=== PATIENT | male | born 1970 | race American Indian/Alaskan Native ===

== ENCOUNTER 2020-02-16 12:39 | Inpatient (IN) | payer OTHER ==
--- NOTE | 2020-02-16 12:42 | EDM.PDOC ---
ED HPI GENERAL MEDICAL PROBLEM - General Chief Complaint: Diabetic Complaint Stated Complaint: UNKNOWN Time Seen by Provider: 02/16/20 12:40 Source of Information: Reports: Patient, EMS, Old Records, Provider (Madeleine CUSTOMER COUNTER REPRESENTATIVE via phone from [facility]), RN, RN Notes Reviewed History Limitations: Reports: No Limitations - History of Present Illness INITIAL COMMENTS - FREE TEXT/NARRATIVE: Pt arrives from [facility] by ambulance sent by Worko CUSTOMER COUNTER REPRESENTATIVE due to serum glucose >1000, and Na+. Pt reports Hx of DM Type 2 on Metformin for several years. Was on Levemir but it was discontinued about a year ago due to "good blood sugars". Pt's recent Hgb A1c was 13.4 per the CUSTOMER COUNTER REPRESENTATIVE at the clinic. Pt does not monitor his blood glucose at home. Pt admits to very dry mouth, polydipsia, polyuria, and mild nausea. Denies fever, chills, cough, chest pain, shortness of breath, vomiting, diarrhea, recent travel, or any exposures to confirmed or suspected Covid-19 cases. 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 - Related Data Allergies Allergy/AdvReac Type Severity Reaction Status Date / Time No Known Allergies Allergy Verified 10/07/14 13:15 Home Meds: Home Meds Aspirin [Ecotrin] 81 mg PO DAILY 10/07/14 [History] Lisinopril 10 mg PO DAILY 10/07/14 [History] Metoprolol Succinate 50 mg PO BID 10/07/14 [History] metFORMIN [Glucophage] 500 mg PO DAILY 10/07/14 [History] Past Medical History Cardiovascular History: Reports: Hypertension Endocrine/Metabolic History: Reports: Diabetes, Type II, Obesity/BMI 30+ - Past Surgical History Other HEENT Surgeries/Procedures: ear surgery GI Surgical History: Reports: Appendectomy, Cholecystectomy Social & Family History - Family History Cardiac: Reports: Angina, CAD, Heart Failure, Hypertension, [place] Respiratory: Reports: Asthma, COPD GI: Reports: Cirrhosis : Reports: Diabetic Nephropathy, Dialysis, Renal Disease/Insufficiency Musculoskeletal: Reports: Arthritis Neurological: Reports: CVA Psychiatric: Reports: Anxiety, Depression Endocrine/Metabolic: Reports: Diabetes, type II, Obesity/MBI 30+ - Alcohol Use Alcohol Use History: No - Recreational Drug Use Recreational Drug Use: No - Living Situation & Occupation Living situation: Reports: Single, with Family ED ROS GENERAL - Review of Systems Review Of Systems: Comprehensive ROS is negative, except as noted in HPI. ED EXAM GENERAL NO PERIP PULSE - Physical Exam Exam: See Below Exam Limited By: No Limitations General Appearance: Alert, WD/WN, No Apparent Distress, Obese Eye Exam: Bilateral Eye: EOMI, Normal Inspection, PERRL Ears: Normal External Exam, Hearing Grossly Normal Nose: Normal Inspection, Normal Mucosa, No Blood Throat/Mouth: Normal Lips, Normal Oropharynx, Normal Voice, No Airway Compromise , Other (Very dry oral mucosa) Head: Atraumatic, Normocephalic Neck: Normal Inspection, Supple, Non-Tender, Full Range of Motion Respiratory/Chest: No Respiratory Distress, Lungs Clear, Normal Breath Sounds, No Accessory Muscle Use, Chest Non-Tender Cardiovascular: Normal Peripheral Pulses, Regular Rate, Rhythm, No Edema, No Gallop, No JVD, No Murmur, No Rub GI/Abdominal: Normal Bowel Sounds, Soft, Non-Tender, No Organomegaly, No Distention, No Abnormal Bruit, No Mass (Male) Exam: Deferred Rectal (Males) Exam: Deferred Back Exam: Normal Inspection Extremities: Normal Inspection, Normal Range of Motion, Non-Tender, Normal Capillary Refill, No Pedal Edema Neurological: Alert, Oriented, CN II-XII Intact, Normal Cognition, Normal Gait, No Motor/Sensory Deficits Psychiatric: Normal Affect, Normal Mood Skin Exam: Warm, Dry, Intact, Normal Color, No Rash EKG INTERPRETATION EKG Date: 02/16/20 Time: 13:02 Rhythm: Other (SR) Rate (Beats/Min): 87 [place]: Normal P-Wave: Present QRS: Wide (borderline nonspecific IVCD) ST-T: Normal QT: Normal Comparison: NA - No Prior EKG Course - Vital Signs Last Recorded V/S: Last Vital Signs Temp 98.1 F 02/16/20 13:05 Pulse 86 02/16/20 13:05 Resp 18 02/16/20 13:05 BP 136/78 02/16/20 13:05 Pulse Ox 96 02/16/20 13:05 - Orders/Labs/Meds Orders: Active Orders 24 hr Category Date Time Status EKG 12 Lead [EKG Documentation Completion] [RC] STAT Care 02/16/20 12:42 Active Peripheral IV Care [RC] . DIRECTED Care 02/16/20 12:44 Active UA RFX MICHELE AND CULT IF INDIC [URIN] Stat Lab 02/16/20 14:00 Received Insulin Regular, Human [HumuLIN R] 100 unit Med 02/16/20 12:45 Active Sodium Chloride 0.9% [Normal Saline] 99 ml IV TITRATE Sodium Chloride 0.9% [Normal Saline] 1,000 ml Med 02/16/20 14:23 Ordered IV .BOLUS Sodium Chloride 0.9% [Saline Flush] Med 02/16/20 12:43 Active 10 ml FLUSH ASDIRECTED PRN Peripheral IV Insertion Adult [OM.PC] Stat Oth 02/16/20 12:42 Ordered Medication Orders Insulin Human Regular 100 unit (/ Sodium Chloride) 100 mls @ 10.13 mls/hr IV TITRATE JENNIFER; Protocol Last Admin: 02/16/20 14:08 Dose: 0.1 units/kg/hr, 10.13 mls/hr Sodium Chloride (Saline Flush) 10 ml FLUSH ASDIRECTED PRN PRN Reason: Keep Vein Open Last Admin: 02/16/20 13:23 Dose: 10 ml Labs: Laboratory Tests 02/16/20 02/16/20 02/16/20 Range/Units 12:46 12:50 12:56 WBC 9.6 (5.0-10.0) 10^3/uL RBC 4.86 (4.6-6.2) 10^6/uL Hgb 14.7 (14.0-18.0) g/dL Hct 41.6 (40.0-54.0) % MCV 85.6 D (80-100) fL MCH 30.2 (27.0-34.0) pg MCHC 35.3 H (33.0-35.0) g/dL Plt Count 322 (150-450) 10^3/uL Neut % (Auto) 74.5 (42.2-75.2) % Lymph % (Auto) 12.4 L (20.5-50.1) % [place] % (Auto) 10.0 H (2-8) % Eos % (Auto) 2.6 (1.0-3.0) % Baso % (Auto) 0.5 (0.0-1.0) % ABG pH 7.39 (7.35-7.45) ABG pCO2 39 (35-45) mmHg ABG pO2 88 (70-100) mmHg ABG HCO3 23.2 (22-26) mmol/L ABG O2 Saturation 93 L (95-100) % ABG Base Excess -1 ((-2)-(+3)) mmol/L Jasiel Test Performed O2 Delivery Device Room air Sodium (136-145) mmol/L Potassium (3.5-5.1) mmol/L Chloride (98-107) mmol/L Carbon Dioxide (21-32) mmol/L Anion Gap (7-13) mEq/L BUN (7-18) mg/dL Creatinine (0.70-1.30) mg/dL Est Cr Clr Drug Dosing mL/min Estimated GFR (MDRD) BUN/Creatinine Ratio (No establ ref range) Glucose (74-99) mg/dL POC Glucose > 500 H* (70-105) mg/dl Lactic Acid (0.4-2.0) mmol/L Calcium (8.5-10.1) mg/dL Magnesium (1.8-2.4) mg/dL Total Bilirubin (0.2-1.0) mg/dL AST (15-37) U/L ALT (16-63) U/L Alkaline Phosphatase (46-116) U/L Troponin I (0.000-0.056) ng/mL Total Protein (6.4-8.2) g/dL Albumin (3.4-5.0) g/dL Globulin Albumin/Globulin Ratio TSH, Ultra Sensitive (0.36-3.74) uIU/mL Urine Opiates Screen (NEGATIVE) Ur Oxycodone Screen (NEGATIVE) Urine Methadone Screen (NEGATIVE) Ur Barbiturates Screen (NEGATIVE) U Tricyclic Antidepress (NEGATIVE) Ur Phencyclidine Scrn (NEGATIVE) Ur Amphetamine Screen (NEGATIVE) U Methamphetamines Scrn (NEGATIVE) Urine MDMA Screen (NEGATIVE) U Benzodiazepines Scrn (NEGATIVE) Urine Cocaine Screen (NEGATIVE) U Marijuana (THC) Screen (NEGATIVE) Ethyl Alcohol (0) mg/dL Ketones 02/16/20 02/16/20 02/16/20 Range/Units 12:56 12:56 14:00 WBC (5.0-10.0) 10^3/uL RBC (4.6-6.2) 10^6/uL Hgb (14.0-18.0) g/dL Hct (40.0-54.0) % MCV (80-100) fL MCH (27.0-34.0) pg MCHC (33.0-35.0) g/dL Plt Count (150-450) 10^3/uL Neut % (Auto) (42.2-75.2) % Lymph % (Auto) (20.5-50.1) % [place] % (Auto) (2-8) % Eos % (Auto) (1.0-3.0) % Baso % (Auto) (0.0-1.0) % ABG pH (7.35-7.45) ABG pCO2 (35-45) mmHg ABG pO2 (70-100) mmHg ABG HCO3 (22-26) mmol/L ABG O2 Saturation (95-100) % ABG Base Excess ((-2)-(+3)) mmol/L Jasiel Test O2 Delivery Device Sodium 121 L (136-145) mmol/L Potassium 4.5 (3.5-5.1) mmol/L Chloride 82 L (98-107) mmol/L Carbon Dioxide 27 (21-32) mmol/L Anion Gap 16.5 H (7-13) mEq/L BUN 43 H (7-18) mg/dL Creatinine 1.98 H (0.70-1.30) mg/dL Est Cr Clr Drug Dosing 43.18 mL/min Estimated GFR (MDRD) 36 BUN/Creatinine Ratio 21.7 (No establ ref range) Glucose 752 H* (74-99) mg/dL POC Glucose (70-105) mg/dl Lactic Acid 1.8 (0.4-2.0) mmol/L Calcium 8.1 L (8.5-10.1) mg/dL Magnesium 2.4 (1.8-2.4) mg/dL Total Bilirubin 1.4 H (0.2-1.0) mg/dL AST 18 (15-37) U/L ALT 34 (16-63) U/L Alkaline Phosphatase 152 H (46-116) U/L Troponin I < 0.017 (0.000-0.056) ng/mL Total Protein 7.7 (6.4-8.2) g/dL Albumin 3.6 (3.4-5.0) g/dL Globulin 4.1 Albumin/Globulin Ratio 0.9 TSH, Ultra Sensitive 0.30 L (0.36-3.74) uIU/mL Urine Opiates Screen Negative (NEGATIVE) Ur Oxycodone Screen Negative (NEGATIVE) Urine Methadone Screen Negative (NEGATIVE) Ur Barbiturates Screen Negative (NEGATIVE) U Tricyclic Antidepress Negative (NEGATIVE) Ur Phencyclidine Scrn Negative (NEGATIVE) Ur Amphetamine Screen Negative (NEGATIVE) U Methamphetamines Scrn Negative (NEGATIVE) Urine MDMA Screen Negative (NEGATIVE) U Benzodiazepines Scrn Negative (NEGATIVE) Urine Cocaine Screen Negative (NEGATIVE) U Marijuana (THC) Screen Negative (NEGATIVE) Ethyl Alcohol < 3 (0) mg/dL Ketones Positive Meds: Medications Generic Name Dose Route Start Last Admin Trade Name Freq PRN Reason Stop Dose Admin Insulin Human Regular 100 unit 100 mls @ 10.13 mls/hr 02/16/20 12:45 14:08 / Sodium Chloride IV 0.1 units/kg/hr TITRATE JENNIFER 10.13 mls/hr Administration Protocol 0.1 UNITS/KG/HR Sodium Chloride 10 ml 02/16/20 12:43 02/16/20 13:23 Saline Flush FLUSH 10 ml ASDIRECTED PRN Administration Keep Vein Open Discontinued Medications Generic Name Dose Route Start Last Admin Trade Name Freq PRN Reason Stop Dose Admin Sodium Chloride 1,000 mls @ 999 mls/hr 02/16/20 12:44 02/16/20 14:07 Normal Saline IV 02/16/20 13:44 999 mls/hr .BOLUS ONE Administration Insulin Human Regular 10 unit 02/16/20 12:44 02/16/20 14:06 Humulin R IV 02/16/20 12:45 10.1 units ONETIME ONE Administration Ondansetron HCl 4 mg 02/16/20 13:42 02/16/20 14:08 Zofran IV 02/16/20 13:43 4 mg ONETIME ONE Administration Departure - Departure Time of Disposition: 14:24 (admitted to Dr. Mccrary) Disposition: Admitted As Inpatient 65 Condition: Fair Clinical Impression: Type 2 diabetes mellitus with hyperglycemia, without long-term current use of insulin, Diabetes mellitus with ketosis - Discharge Information *PRESCRIPTION DRUG MONITORING PROGRAM REVIEWED*: Not Applicable *COPY OF PRESCRIPTION DRUG MONITORING REPORT IN PATIENT RENATA: Not Applicable Forms: ED Department Discharge Sepsis Event Note - Focused Exam Vital Signs: Vital Signs Temp Pulse Resp BP Pulse Ox 02/16/20 13:05 98.1 F 86 18 136/78 96 Date Exam was Performed: 02/16/20 Time Exam was Performed: 14:24 - My Orders Last 24 Hours: My Active Orders 02/16/20 12:42 EKG 12 Lead [EKG Documentation Completion] [RC] STAT Peripheral IV Insertion Adult [OM.PC] Stat 02/16/20 12:43 Sodium Chloride 0.9% [Saline Flush] 10 ml FLUSH ASDIRECTED PRN 02/16/20 12:44 Peripheral IV Care [RC] . DIRECTED 02/16/20 12:45 Insulin Regular, Human [HumuLIN R] 100 unit Sodium Chloride 0.9% [Normal Saline] 99 ml IV TITRATE 02/16/20 14:00 UA RFX MICHELE AND CULT IF INDIC [URIN] Stat 02/16/20 14:23 Sodium Chloride 0.9% [Normal Saline] 1,000 ml IV .BOLUS - Assessment/Plan Last 24 Hours: My Active Orders 02/16/20 12:42 EKG 12 Lead [EKG Documentation Completion] [RC] STAT Peripheral IV Insertion Adult [OM.PC] Stat 02/16/20 12:43 Sodium Chloride 0.9% [Saline Flush] 10 ml FLUSH ASDIRECTED PRN 02/16/20 12:44 Peripheral IV Care [RC] . DIRECTED 02/16/20 12:45 Insulin Regular, Human [HumuLIN R] 100 unit Sodium Chloride 0.9% [Normal Saline] 99 ml IV TITRATE 02/16/20 14:00 UA RFX MICHELE AND CULT IF INDIC [URIN] Stat 02/16/20 14:23 Sodium Chloride 0.9% [Normal Saline] 1,000 ml IV .BOLUS
[2020-02-16] MEDS ORDERED: Sodium Chloride 0.9% 10 ML Syringe FLUSH PRN (12:43)
[2020-02-16] MEDS ORDERED: Insulin Regular, Human 100 Units/ML 3 ML Vial IV ONE (12:44)
[2020-02-16] MEDS ORDERED: Sodium Chloride 0.9% 1,000 ML IV ONE ×2 (12:44→14:23)
[2020-02-16 12:57] LABS: BASE EXCESS ARTERIAL -1 mmol/L ((-2)-(+3)); BICARBONATE,ARTERIAL 23.2 mmol/L (22-26); O2 DELIVERY DEVICE ROOM AIR; O2 SATURATION ARTERIAL 93 % (95-100); PCO2 ARTERIAL 39 mmHg (35-45); PO2 ARTERIAL 88 mmHg (70-100)
[2020-02-16 12:58] LABS: ALLEN TEST PERFORMED
[2020-02-16 13:31] LABS: ANION GAP 16.5 mEq/L (7-13); CHLORIDE,CL 82 mmol/L (98-107); SODIUM,NA 121 mmol/L (136-145)
[2020-02-16] MEDS ORDERED: Ondansetron 4 MG/2 ML SDV IV ONE (13:42)
[2020-02-16] MEDS ORDERED: Acetaminophen 325 MG Tab PO PRN (15:14)
[2020-02-16] MEDS ORDERED: Ondansetron 4 MG/2 ML SDV IVPUSH PRN (15:14)
--- NOTE | 2020-02-16 15:29 | PCM.HP ---
H&P History of Present Illness - General Date of Service: 02/16/20 Admit Problem/Dx: Admission Diagnosis/Problem Admission Diagnosis/Problem Hyperglycemia - History of Present Illness Initial Comments - Free Text/Narative: Is a 49-year-old man with past medical history of diabetes mellitus. Patient discontinued use of insulin about 5 years ago as advised because of good blood sugar. In the past one week he has been having polyuria, polydipsia, dry mouth. Was found to have blood sugar greater than 1200. Does have mild cough that is mostly unproductive. No fever chills or rigors. Denies feeling short of breath. In the emergency room the patient was found to be hyperglycemic. Anion gap was 16 though serum bicarbonate was within normal limits. Urinalysis was positive for ketones. Patient denies dysuria or frequency or micturition. No diarrhea. - Related Data Allergies/Adverse Reactions: Allergies Allergy/AdvReac Type Severity Reaction Status Date / Time No Known Allergies Allergy Verified 02/16/20 15:20 Home Medications: Home Meds Aspirin [Ecotrin] 81 mg PO DAILY 10/07/14 [History] Lisinopril 10 mg PO DAILY 10/07/14 [History] Metoprolol Succinate 50 mg PO BID 10/07/14 [History] metFORMIN [Glucophage] 500 mg PO DAILY 10/07/14 [History] Past Medical History Cardiovascular History: Reports: Hypertension Endocrine/Metabolic History: Reports: Diabetes, Type II, Obesity/BMI 30+ - Past Surgical History Other HEENT Surgeries/Procedures: ear surgery GI Surgical History: Reports: Appendectomy, Cholecystectomy Social & Family History - Family History Family Medical History: Noncontributory Cardiac: Reports: Angina, CAD, Heart Failure, Hypertension, SD Respiratory: Reports: Asthma, COPD GI: Reports: Cirrhosis : Reports: Diabetic Nephropathy, Dialysis, Renal Disease/Insufficiency Musculoskeletal: Reports: Arthritis Neurological: Reports: CVA Psychiatric: Reports: Anxiety, Depression Endocrine/Metabolic: Reports: Diabetes, type II, Obesity/MBI 30+ - Tobacco Use Smoking Status *Q: Never Smoker - Caffeine Use Caffeine Use: Reports: Coffee - Recreational Drug Use Recreational Drug Use: No - Living Situation & Occupation Living situation: Reports: Single, with Family H&P Review of Systems - Review of Systems: Review Of Systems: See Below General: Reports: Weakness, Fatigue Pulmonary: Reports: No Symptoms Cardiovascular: Reports: No Symptoms Gastrointestinal: Reports: Nausea, Vomiting Musculoskeletal: Reports: No Symptoms Skin: Reports: No Symptoms Psychiatric: Reports: No Symptoms Exam - Exam Exam: See Below - Vital Signs Vital Signs: Last Vital Signs Temp 36.7 C 02/16/20 13:05 Pulse 86 02/16/20 13:05 Resp 18 02/16/20 13:05 BP 136/78 02/16/20 13:05 Pulse Ox 96 02/16/20 13:05 Weight: 101.333 kg - Exam Neck: Supple, Trachea Midline, 2 Lungs: Clear to Auscultation, Normal Respiratory Effort Cardiovascular: Regular Rate, Regular Rhythm GI/Abdominal Exam: Normal Bowel Sounds, Soft, Non-Tender, No Organomegaly, No Distention, No Abnormal Bruit, No Mass, Pelvis Stable Extremities: Normal Inspection, Normal Range of Motion, Non-Tender, No Pedal Edema, Normal Capillary Refill - Patient Data Lab Results Last 24 hrs: Laboratory Results - last 24 hr 02/16/20 02/16/20 02/16/20 Range/Units 12:46 12:50 12:56 WBC 9.6 (5.0-10.0) 10^3/uL RBC 4.86 (4.6-6.2) 10^6/uL Hgb 14.7 (14.0-18.0) g/dL Hct 41.6 (40.0-54.0) % MCV 85.6 D (80-100) fL MCH 30.2 (27.0-34.0) pg MCHC 35.3 H (33.0-35.0) g/dL Plt Count 322 (150-450) 10^3/uL Neut % (Auto) 74.5 (42.2-75.2) % Lymph % (Auto) 12.4 L (20.5-50.1) % Edgar % (Auto) 10.0 H (2-8) % Eos % (Auto) 2.6 (1.0-3.0) % Baso % (Auto) 0.5 (0.0-1.0) % ABG pH 7.39 (7.35-7.45) ABG pCO2 39 (35-45) mmHg ABG pO2 88 (70-100) mmHg ABG HCO3 23.2 (22-26) mmol/L ABG O2 Saturation 93 L (95-100) % ABG Base Excess -1 ((-2)-(+3)) mmol/L Jasiel Test Performed O2 Delivery Device Room air Sodium (136-145) mmol/L Potassium (3.5-5.1) mmol/L Chloride (98-107) mmol/L Carbon Dioxide (21-32) mmol/L Anion Gap (7-13) mEq/L BUN (7-18) mg/dL Creatinine (0.70-1.30) mg/dL Est Cr Clr Drug Dosing mL/min Estimated GFR (MDRD) BUN/Creatinine Ratio (No establ ref range) Glucose (74-99) mg/dL POC Glucose > 500 H* (70-105) mg/dl Lactic Acid (0.4-2.0) mmol/L Calcium (8.5-10.1) mg/dL Magnesium (1.8-2.4) mg/dL Total Bilirubin (0.2-1.0) mg/dL AST (15-37) U/L ALT (16-63) U/L Alkaline Phosphatase (46-116) U/L Troponin I (0.000-0.056) ng/mL Total Protein (6.4-8.2) g/dL Albumin (3.4-5.0) g/dL Globulin Albumin/Globulin Ratio TSH, Ultra Sensitive (0.36-3.74) uIU/mL Urine Color (YELLOW) Urine Appearance (CLEAR) Urine pH (5.0-9.0) Ur Specific [place] (1.005-1.030) Urine Protein (NEGATIVE) Urine Glucose (UA) (NEGATIVE) Urine Ketones (NEGATIVE) Urine Occult Blood (NEGATIVE) Urine Nitrite (NEGATIVE) Urine Bilirubin (NEGATIVE) Urine Urobilinogen (0.2-1.0) mg/dL Ur Leukocyte Esterase (NEGATIVE) Urine RBC /HPF Urine WBC (0-5/HPF) /HPF Ur Epithelial Cells (NOT SEEN) /HPF Amorphous Sediment (NOT SEEN) /HPF Urine Bacteria (0-FEW/HPF) /HPF Urine Mucus (NOT SEEN) /LPF Urine Opiates Screen (NEGATIVE) Ur Oxycodone Screen (NEGATIVE) Urine Methadone Screen (NEGATIVE) Ur Barbiturates Screen (NEGATIVE) U Tricyclic Antidepress (NEGATIVE) Ur Phencyclidine Scrn (NEGATIVE) Ur Amphetamine Screen (NEGATIVE) U Methamphetamines Scrn (NEGATIVE) Urine MDMA Screen (NEGATIVE) U Benzodiazepines Scrn (NEGATIVE) Urine Cocaine Screen (NEGATIVE) U Marijuana (THC) Screen (NEGATIVE) Ethyl Alcohol (0) mg/dL Ketones 02/16/20 02/16/20 02/16/20 Range/Units 12:56 12:56 14:00 WBC (5.0-10.0) 10^3/uL RBC (4.6-6.2) 10^6/uL Hgb (14.0-18.0) g/dL Hct (40.0-54.0) % MCV (80-100) fL MCH (27.0-34.0) pg MCHC (33.0-35.0) g/dL Plt Count (150-450) 10^3/uL Neut % (Auto) (42.2-75.2) % Lymph % (Auto) (20.5-50.1) % Edgar % (Auto) (2-8) % Eos % (Auto) (1.0-3.0) % Baso % (Auto) (0.0-1.0) % ABG pH (7.35-7.45) ABG pCO2 (35-45) mmHg ABG pO2 (70-100) mmHg ABG HCO3 (22-26) mmol/L ABG O2 Saturation (95-100) % ABG Base Excess ((-2)-(+3)) mmol/L Jasiel Test O2 Delivery Device Sodium 121 L (136-145) mmol/L Potassium 4.5 (3.5-5.1) mmol/L Chloride 82 L (98-107) mmol/L Carbon Dioxide 27 (21-32) mmol/L Anion Gap 16.5 H (7-13) mEq/L BUN 43 H (7-18) mg/dL Creatinine 1.98 H (0.70-1.30) mg/dL Est Cr Clr Drug Dosing 43.18 mL/min Estimated GFR (MDRD) 36 BUN/Creatinine Ratio 21.7 (No establ ref range) Glucose 752 H* (74-99) mg/dL POC Glucose (70-105) mg/dl Lactic Acid 1.8 (0.4-2.0) mmol/L Calcium 8.1 L (8.5-10.1) mg/dL Magnesium 2.4 (1.8-2.4) mg/dL Total Bilirubin 1.4 H (0.2-1.0) mg/dL AST 18 (15-37) U/L ALT 34 (16-63) U/L Alkaline Phosphatase 152 H (46-116) U/L Troponin I < 0.017 (0.000-0.056) ng/mL Total Protein 7.7 (6.4-8.2) g/dL Albumin 3.6 (3.4-5.0) g/dL Globulin 4.1 Albumin/Globulin Ratio 0.9 TSH, Ultra Sensitive 0.30 L (0.36-3.74) uIU/mL Urine Color Yellow (YELLOW) Urine Appearance Slightly cloudy (CLEAR) Urine pH 6.0 (5.0-9.0) Ur Specific [place] 1.015 (1.005-1.030) Urine Protein Negative (NEGATIVE) Urine Glucose (UA) 500 H (NEGATIVE) Urine Ketones Trace H (NEGATIVE) Urine Occult Blood Trace-lysed H (NEGATIVE) Urine Nitrite Negative (NEGATIVE) Urine Bilirubin Negative (NEGATIVE) Urine Urobilinogen 0.2 (0.2-1.0) mg/dL Ur Leukocyte Esterase Negative (NEGATIVE) Urine RBC 5-10 H /HPF Urine WBC 0-5 (0-5/HPF) /HPF Ur Epithelial Cells Rare (NOT SEEN) /HPF Amorphous Sediment Rare (NOT SEEN) /HPF Urine Bacteria Rare (0-FEW/HPF) /HPF Urine Mucus Rare (NOT SEEN) /LPF Urine Opiates Screen (NEGATIVE) Ur Oxycodone Screen (NEGATIVE) Urine Methadone Screen (NEGATIVE) Ur Barbiturates Screen (NEGATIVE) U Tricyclic Antidepress (NEGATIVE) Ur Phencyclidine Scrn (NEGATIVE) Ur Amphetamine Screen (NEGATIVE) U Methamphetamines Scrn (NEGATIVE) Urine MDMA Screen (NEGATIVE) U Benzodiazepines Scrn (NEGATIVE) Urine Cocaine Screen (NEGATIVE) U Marijuana (THC) Screen (NEGATIVE) Ethyl Alcohol < 3 (0) mg/dL Ketones Positive 02/16/20 02/16/20 Range/Units 14:00 15:20 WBC (5.0-10.0) 10^3/uL RBC (4.6-6.2) 10^6/uL Hgb (14.0-18.0) g/dL Hct (40.0-54.0) % MCV (80-100) fL MCH (27.0-34.0) pg MCHC (33.0-35.0) g/dL Plt Count (150-450) 10^3/uL Neut % (Auto) (42.2-75.2) % Lymph % (Auto) (20.5-50.1) % Edgar % (Auto) (2-8) % Eos % (Auto) (1.0-3.0) % Baso % (Auto) (0.0-1.0) % ABG pH (7.35-7.45) ABG pCO2 (35-45) mmHg ABG pO2 (70-100) mmHg ABG HCO3 (22-26) mmol/L ABG O2 Saturation (95-100) % ABG Base Excess ((-2)-(+3)) mmol/L Jasiel Test O2 Delivery Device Sodium (136-145) mmol/L Potassium (3.5-5.1) mmol/L Chloride (98-107) mmol/L Carbon Dioxide (21-32) mmol/L Anion Gap (7-13) mEq/L BUN (7-18) mg/dL Creatinine (0.70-1.30) mg/dL Est Cr Clr Drug Dosing mL/min Estimated GFR (MDRD) BUN/Creatinine Ratio (No establ ref range) Glucose (74-99) mg/dL POC Glucose 440 H* (70-105) mg/dl Lactic Acid (0.4-2.0) mmol/L Calcium (8.5-10.1) mg/dL Magnesium (1.8-2.4) mg/dL Total Bilirubin (0.2-1.0) mg/dL AST (15-37) U/L ALT (16-63) U/L Alkaline Phosphatase (46-116) U/L Troponin I (0.000-0.056) ng/mL Total Protein (6.4-8.2) g/dL Albumin (3.4-5.0) g/dL Globulin Albumin/Globulin Ratio TSH, Ultra Sensitive (0.36-3.74) uIU/mL Urine Color (YELLOW) Urine Appearance (CLEAR) Urine pH (5.0-9.0) Ur Specific [place] (1.005-1.030) Urine Protein (NEGATIVE) Urine Glucose (UA) (NEGATIVE) Urine Ketones (NEGATIVE) Urine Occult Blood (NEGATIVE) Urine Nitrite (NEGATIVE) Urine Bilirubin (NEGATIVE) Urine Urobilinogen (0.2-1.0) mg/dL Ur Leukocyte Esterase (NEGATIVE) Urine RBC /HPF Urine WBC (0-5/HPF) /HPF Ur Epithelial Cells (NOT SEEN) /HPF Amorphous Sediment (NOT SEEN) /HPF Urine Bacteria (0-FEW/HPF) /HPF Urine Mucus (NOT SEEN) /LPF Urine Opiates Screen Negative (NEGATIVE) Ur Oxycodone Screen Negative (NEGATIVE) Urine Methadone Screen Negative (NEGATIVE) Ur Barbiturates Screen Negative (NEGATIVE) U Tricyclic Antidepress Negative (NEGATIVE) Ur Phencyclidine Scrn Negative (NEGATIVE) Ur Amphetamine Screen Negative (NEGATIVE) U Methamphetamines Scrn Negative (NEGATIVE) Urine MDMA Screen Negative (NEGATIVE) U Benzodiazepines Scrn Negative (NEGATIVE) Urine Cocaine Screen Negative (NEGATIVE) U Marijuana (THC) Screen Negative (NEGATIVE) Ethyl Alcohol (0) mg/dL Ketones Result Diagrams: 02/16/20 12:56 02/16/20 12:56 Problem List Initiated/Reviewed/Updated: Yes Orders Last 24hrs: Active Orders 24 hr Category Date Time Status Admission Diagnosis [ADT] Stat ADT 02/16/20 14:48 Ordered Admission Status [Patient Status] [ADT] Routine ADT 02/16/20 14:48 Active Patient Status [ADT] Routine ADT 02/16/20 15:14 Ordered EKG 12 Lead [EKG Documentation Completion] [RC] STAT Care 02/16/20 12:42 Active Intake and Output [RC] QSHIFT Care 02/16/20 15:15 Ordered Oxygen Therapy [RC] PRN Care 02/16/20 15:14 Ordered Peripheral IV Care [RC] . DIRECTED Care 02/16/20 12:44 Active Up ad Jyoti [RC] ASDIRECTED Care 02/16/20 15:14 Ordered VTE/DVT Education [RC] PER UNIT ROUTINE Care 02/16/20 15:14 Ordered Vital Signs [RC] Q4H Care 02/16/20 15:14 Ordered Consistent Carbohydrate Diet [DIET] Diet 02/16/20 Dinner Ordered BASIC METABOLIC PANEL,BMP [CHEM] Q8H Lab 02/17/20 05:11 Ordered BASIC METABOLIC PANEL,BMP [CHEM] Q8H Lab 02/17/20 13:11 Ordered BASIC METABOLIC PANEL,BMP [CHEM] Q8H Lab 02/17/20 21:11 Ordered CBC WITH AUTO DIFF [HEME] AM Lab 02/17/20 05:11 Ordered FREE T3 [REF] Routine Lab 02/16/20 15:24 Ordered MAGNESIUM [CHEM] AM Lab 02/17/20 05:11 Ordered PHOSPHORUS [CHEM] AM Lab 02/17/20 05:11 Ordered T4 FREE [CHEM] Routine Lab 02/16/20 15:24 Ordered Acetaminophen [Tylenol] Med 02/16/20 15:14 Ordered 650 mg PO Q4H PRN Heparin Sodium Med 02/16/20 22:00 Ordered 5,000 units SUBCUT Q8HR Insulin Regular, Human [HumuLIN R] 100 unit Med 02/16/20 12:45 Active Sodium Chloride 0.9% [Normal Saline] 99 ml IV TITRATE Ondansetron [Zofran] Med 02/16/20 15:14 Ordered 4 mg IVPUSH Q6H PRN Sodium Chloride 0.9% [Normal Saline] 1,000 ml Med 02/16/20 15:15 Ordered IV ASDIRECTED Sodium Chloride 0.9% [Saline Flush] Med 02/16/20 12:43 Active 10 ml FLUSH ASDIRECTED PRN Peripheral IV Insertion Adult [OM.PC] Stat Oth 02/16/20 12:42 Ordered Resuscitation Status Routine Resus Stat 02/16/20 15:14 Ordered Medication Orders Acetaminophen (Tylenol) 650 mg PO Q4H PRN PRN Reason: Pain (Mild 1-3)/fever Heparin Sodium (Porcine) (Heparin Sodium) 5,000 units SUBCUT Q8HR JENNIFER Insulin Human Regular 100 unit (/ Sodium Chloride) 100 mls @ 20.26 mls/hr IV TITRATE JENNIFER; Protocol Last Admin: 02/16/20 14:08 Dose: 0.1 units/kg/hr, 10.13 mls/hr Sodium Chloride (Normal Saline) 1,000 mls @ 200 mls/hr IV ASDIRECTED JENNIFER Ondansetron HCl (Zofran) 4 mg IVPUSH Q6H PRN PRN Reason: Nausea/Vomiting Sodium Chloride (Saline Flush) 10 ml FLUSH ASDIRECTED PRN PRN Reason: Keep Vein Open Last Admin: 02/16/20 13:23 Dose: 10 ml Assessment/Plan Comment:: #. Severe hyperglycemia blood sugar was greater than 1200 #. Uncontrolled diabetes mellitus type 2 Discontinued insulin use because of "good blood sugar" #. Hyponatremia Secondary to hyperglycemia #. Low TSH We'll investigate for hyperthyroidism #. Elevated bilirubin Plan: Admit patient to medical floor Start patient on continuous intravenous insulin Monitor blood sugar Obtain basic metabolic panel every 8 hours Send sample for serum free T3 and T4
[2020-02-16] MEDS: Sodium Chloride 0.9% 1,000 ML IV SCH ×2 (16:56→21:59)
[2020-02-16] MEDS: Insulin Lispro 100 Units/ML 3 ML Vial SUBCUT SCH ×2 (18:19→21:24)
[2020-02-16] MEDS: Insulin Glarg,Human.Rec.Analog 100 Unit/ML SUBCUT SCH (19:24)
[2020-02-16] MEDS ORDERED: Insulin Glarg,Human.Rec.Analog 100 Unit/ML SUBCUT ONE (21:11)
[2020-02-16] MEDS ORDERED: Insulin Lispro 100 Units/ML 3 ML Vial SUBCUT ONE (21:12)
[2020-02-16] MEDS: Heparin Sodium 5,000 Units/ML Vial SUBCUT SCH (21:37)
[2020-02-16] MEDS: Benzocaine/Cetylpyridinium/Menthol Lozenge MUCMEM PRN (23:50)
[2020-02-17] MEDS: Sodium Chloride 0.9% 1,000 ML IV SCH ×2 (03:04→08:21)
[2020-02-17] MEDS: Heparin Sodium 5,000 Units/ML Vial SUBCUT SCH ×2 (06:43→14:10)
[2020-02-17 07:17] LABS: CHLORIDE,CL 98 mmol/L (98-107); SODIUM,NA 133 mmol/L (136-145)
[2020-02-17] MEDS: Insulin Glarg,Human.Rec.Analog 100 Unit/ML SUBCUT SCH (08:21)
[2020-02-17] MEDS: Insulin Lispro 100 Units/ML 3 ML Vial SUBCUT SCH ×4 (08:22→12:42)
[2020-02-17] MEDS: Benzocaine/Cetylpyridinium/Menthol Lozenge MUCMEM PRN (08:47)
--- NOTE | 2020-02-17 11:41 | PCM.DCSUM1 ---
Discharge Summary - Hospital Course Free Text/Narrative:: Is a 49-year-old man with past medical history of diabetes mellitus. Patient discontinued use of insulin about 5 years ago as advised because of good blood sugar. In the past one week started having polyuria, polydipsia, dry mouth. Was found to have blood sugar greater than 1200. He was placed on IV insulin and later transitioned to SC insulin. Blood sugar is better controlled and he will be discharged home to follow up with his PMD. Final dX #. Severe hyperglycemia blood sugar was greater than 1200 #. Acute renal failure #. Uncontrolled diabetes mellitus type 2 Discontinued insulin use because of "good blood sugar" #. Hyponatremia Secondary to hyperglycemia #. Low TSH We'll investigate for hyperthyroidism #. Elevated bilirubin - Discharge Data Discharge Date: 02/17/20 Discharge Disposition: Home, Self-Care 01 Condition: Good - Referral to Home Health Primary Care Physician: PCP Unobtainable - Discharge Plan *PRESCRIPTION DRUG MONITORING PROGRAM REVIEWED*: Not Applicable *COPY OF PRESCRIPTION DRUG MONITORING REPORT IN PATIENT RENATA: Not Applicable Prescriptions/Med Rec: Insulin Detemir [Levemir] 40 unit SQ BEDTIME #1 pen Insulin Lispro [HumaLOG] 15 unit SUBCUT TIDMEALS #1 pen metFORMIN [Glucophage] 500 mg PO BIDMEALS #90 tablet Home Medications: Home Meds Aspirin [Ecotrin EC] 81 mg PO DAILY 10/07/14 [History] Cholecalciferol (Vitamin D3) [Vitamin D3] 1,000 unit PO DAILY 02/16/20 [History] Lisinopril [Zestril] 40 mg PO DAILY 02/16/20 [History] Metoprolol Succinate 100 mg PO DAILY 02/16/20 [History] hydroCHLOROthiazide [Hydrochlorothiazide] 50 mg PO DAILY 02/16/20 [History] Insulin Detemir [Levemir] 40 unit SQ BEDTIME #1 pen 02/17/20 [Rx] Insulin Lispro [HumaLOG] 15 unit SUBCUT TIDMEALS #1 pen 02/17/20 [Rx] metFORMIN [Glucophage] 500 mg PO BIDMEALS #90 tablet 02/17/20 [Rx] Patient Handouts: Insulin Treatment for Diabetes Mellitus, Hyperglycemia, Easy- to-Read, Insulin Injection Instructions, Using Insulin Pens, Adult, Type 2 Diabetes Mellitus, Self Care, Adult, [id number], Metformin tablets, Preventing Diabetes Mellitus Complications, Insulin Lispro injection, Blood Glucose Monitoring, Adult Referrals: PCP,Unobtain [Primary Care Provider] - - Discharge Summary/Plan Comment DC Time >30 min.: No - Review of Systems General: Reports: No Symptoms HEENT: Reports: No Symptoms Pulmonary: Reports: No Symptoms Cardiovascular: Reports: No Symptoms Gastrointestinal: Reports: No Symptoms - Patient Data Vitals - Most Recent: Last Vital Signs Temp 37.2 C 02/17/20 08:00 Pulse 66 02/17/20 08:00 Resp 20 02/17/20 08:00 BP 117/62 02/17/20 08:00 Pulse Ox 97 02/17/20 08:00 Weight - Most Recent: 102.965 kg I&O - Last 24 hours: Intake & Output 02/16/20 02/17/20 02/17/20 22:59 06:59 14:59 Intake Total 425 3321 Output Total 400 1850 700 Balance 25 1471 -700 Lab Results - Last 24 hrs: Laboratory Results - last 24 hr 02/16/20 02/16/20 02/16/20 Range/Units 12:46 12:50 12:56 WBC 9.6 (5.0-10.0) 10^3/uL RBC 4.86 (4.6-6.2) 10^6/uL Hgb 14.7 (14.0-18.0) g/dL Hct 41.6 (40.0-54.0) % MCV 85.6 D (80-100) fL MCH 30.2 (27.0-34.0) pg MCHC 35.3 H (33.0-35.0) g/dL Plt Count 322 (150-450) 10^3/uL Neut % (Auto) 74.5 (42.2-75.2) % Lymph % (Auto) 12.4 L (20.5-50.1) % [place] % (Auto) 10.0 H (2-8) % Eos % (Auto) 2.6 (1.0-3.0) % Baso % (Auto) 0.5 (0.0-1.0) % ABG pH 7.39 (7.35-7.45) ABG pCO2 39 (35-45) mmHg ABG pO2 88 (70-100) mmHg ABG HCO3 23.2 (22-26) mmol/L ABG O2 Saturation 93 L (95-100) % ABG Base Excess -1 ((-2)-(+3)) mmol/L Jasiel Test Performed O2 Delivery Device Room air Sodium (136-145) mmol/L Potassium (3.5-5.1) mmol/L Chloride (98-107) mmol/L Carbon Dioxide (21-32) mmol/L Anion Gap (7-13) mEq/L BUN (7-18) mg/dL Creatinine (0.70-1.30) mg/dL Est Cr Clr Drug Dosing mL/min Estimated GFR (MDRD) BUN/Creatinine Ratio (No establ ref range) Glucose (74-99) mg/dL POC Glucose > 500 H* (70-105) mg/dl Lactic Acid (0.4-2.0) mmol/L Calcium (8.5-10.1) mg/dL Phosphorus (2.6-4.7) mg/dL Magnesium (1.8-2.4) mg/dL Total Bilirubin (0.2-1.0) mg/dL AST (15-37) U/L ALT (16-63) U/L Alkaline Phosphatase (46-116) U/L Troponin I (0.000-0.056) ng/mL Total Protein (6.4-8.2) g/dL Albumin (3.4-5.0) g/dL Globulin Albumin/Globulin Ratio Free T4 (0.76-1.46) ng/dL TSH, Ultra Sensitive (0.36-3.74) uIU/mL Urine Color (YELLOW) Urine Appearance (CLEAR) Urine pH (5.0-9.0) Ur Specific [place] (1.005-1.030) Urine Protein (NEGATIVE) Urine Glucose (UA) (NEGATIVE) Urine Ketones (NEGATIVE) Urine Occult Blood (NEGATIVE) Urine Nitrite (NEGATIVE) Urine Bilirubin (NEGATIVE) Urine Urobilinogen (0.2-1.0) mg/dL Ur Leukocyte Esterase (NEGATIVE) Urine RBC /HPF Urine WBC (0-5/HPF) /HPF Ur Epithelial Cells (NOT SEEN) /HPF Amorphous Sediment (NOT SEEN) /HPF Urine Bacteria (0-FEW/HPF) /HPF Urine Mucus (NOT SEEN) /LPF Urine Opiates Screen (NEGATIVE) Ur Oxycodone Screen (NEGATIVE) Urine Methadone Screen (NEGATIVE) Ur Barbiturates Screen (NEGATIVE) U Tricyclic Antidepress (NEGATIVE) Ur Phencyclidine Scrn (NEGATIVE) Ur Amphetamine Screen (NEGATIVE) U Methamphetamines Scrn (NEGATIVE) Urine MDMA Screen (NEGATIVE) U Benzodiazepines Scrn (NEGATIVE) Urine Cocaine Screen (NEGATIVE) U Marijuana (THC) Screen (NEGATIVE) Ethyl Alcohol (0) mg/dL Ketones 02/16/20 02/16/20 02/16/20 Range/Units 12:56 12:56 12:56 WBC (5.0-10.0) 10^3/uL RBC (4.6-6.2) 10^6/uL Hgb (14.0-18.0) g/dL Hct (40.0-54.0) % MCV (80-100) fL MCH (27.0-34.0) pg MCHC (33.0-35.0) g/dL Plt Count (150-450) 10^3/uL Neut % (Auto) (42.2-75.2) % Lymph % (Auto) (20.5-50.1) % [place] % (Auto) (2-8) % Eos % (Auto) (1.0-3.0) % Baso % (Auto) (0.0-1.0) % ABG pH (7.35-7.45) ABG pCO2 (35-45) mmHg ABG pO2 (70-100) mmHg ABG HCO3 (22-26) mmol/L ABG O2 Saturation (95-100) % ABG Base Excess ((-2)-(+3)) mmol/L Jasiel Test O2 Delivery Device Sodium 121 L (136-145) mmol/L Potassium 4.5 (3.5-5.1) mmol/L Chloride 82 L (98-107) mmol/L Carbon Dioxide 27 (21-32) mmol/L Anion Gap 16.5 H (7-13) mEq/L BUN 43 H (7-18) mg/dL Creatinine 1.98 H (0.70-1.30) mg/dL Est Cr Clr Drug Dosing 43.18 mL/min Estimated GFR (MDRD) 36 BUN/Creatinine Ratio 21.7 (No establ ref range) Glucose 752 H* (74-99) mg/dL POC Glucose (70-105) mg/dl Lactic Acid 1.8 (0.4-2.0) mmol/L Calcium 8.1 L (8.5-10.1) mg/dL Phosphorus (2.6-4.7) mg/dL Magnesium 2.4 (1.8-2.4) mg/dL Total Bilirubin 1.4 H (0.2-1.0) mg/dL AST 18 (15-37) U/L ALT 34 (16-63) U/L Alkaline Phosphatase 152 H (46-116) U/L Troponin I < 0.017 (0.000-0.056) ng/mL Total Protein 7.7 (6.4-8.2) g/dL Albumin 3.6 (3.4-5.0) g/dL Globulin 4.1 Albumin/Globulin Ratio 0.9 Free T4 1.57 H (0.76-1.46) ng/dL TSH, Ultra Sensitive 0.30 L (0.36-3.74) uIU/mL Urine Color (YELLOW) Urine Appearance (CLEAR) Urine pH (5.0-9.0) Ur Specific [place] (1.005-1.030) Urine Protein (NEGATIVE) Urine Glucose (UA) (NEGATIVE) Urine Ketones (NEGATIVE) Urine Occult Blood (NEGATIVE) Urine Nitrite (NEGATIVE) Urine Bilirubin (NEGATIVE) Urine Urobilinogen (0.2-1.0) mg/dL Ur Leukocyte Esterase (NEGATIVE) Urine RBC /HPF Urine WBC (0-5/HPF) /HPF Ur Epithelial Cells (NOT SEEN) /HPF Amorphous Sediment (NOT SEEN) /HPF Urine Bacteria (0-FEW/HPF) /HPF Urine Mucus (NOT SEEN) /LPF Urine Opiates Screen (NEGATIVE) Ur Oxycodone Screen (NEGATIVE) Urine Methadone Screen (NEGATIVE) Ur Barbiturates Screen (NEGATIVE) U Tricyclic Antidepress (NEGATIVE) Ur Phencyclidine Scrn (NEGATIVE) Ur Amphetamine Screen (NEGATIVE) U Methamphetamines Scrn (NEGATIVE) Urine MDMA Screen (NEGATIVE) U Benzodiazepines Scrn (NEGATIVE) Urine Cocaine Screen (NEGATIVE) U Marijuana (THC) Screen (NEGATIVE) Ethyl Alcohol < 3 (0) mg/dL Ketones Positive 02/16/20 02/16/20 02/16/20 Range/Units 14:00 14:00 15:20 WBC (5.0-10.0) 10^3/uL RBC (4.6-6.2) 10^6/uL Hgb (14.0-18.0) g/dL Hct (40.0-54.0) % MCV (80-100) fL MCH (27.0-34.0) pg MCHC (33.0-35.0) g/dL Plt Count (150-450) 10^3/uL Neut % (Auto) (42.2-75.2) % Lymph % (Auto) (20.5-50.1) % [place] % (Auto) (2-8) % Eos % (Auto) (1.0-3.0) % Baso % (Auto) (0.0-1.0) % ABG pH (7.35-7.45) ABG pCO2 (35-45) mmHg ABG pO2 (70-100) mmHg ABG HCO3 (22-26) mmol/L ABG O2 Saturation (95-100) % ABG Base Excess ((-2)-(+3)) mmol/L Jasiel Test O2 Delivery Device Sodium (136-145) mmol/L Potassium (3.5-5.1) mmol/L Chloride (98-107) mmol/L Carbon Dioxide (21-32) mmol/L Anion Gap (7-13) mEq/L BUN (7-18) mg/dL Creatinine (0.70-1.30) mg/dL Est Cr Clr Drug Dosing mL/min Estimated GFR (MDRD) BUN/Creatinine Ratio (No establ ref range) Glucose (74-99) mg/dL POC Glucose 440 H* (70-105) mg/dl Lactic Acid (0.4-2.0) mmol/L Calcium (8.5-10.1) mg/dL Phosphorus (2.6-4.7) mg/dL Magnesium (1.8-2.4) mg/dL Total Bilirubin (0.2-1.0) mg/dL AST (15-37) U/L ALT (16-63) U/L Alkaline Phosphatase (46-116) U/L Troponin I (0.000-0.056) ng/mL Total Protein (6.4-8.2) g/dL Albumin (3.4-5.0) g/dL Globulin Albumin/Globulin Ratio Free T4 (0.76-1.46) ng/dL TSH, Ultra Sensitive (0.36-3.74) uIU/mL Urine Color Yellow (YELLOW) Urine Appearance Slightly cloudy (CLEAR) Urine pH 6.0 (5.0-9.0) Ur Specific [place] 1.015 (1.005-1.030) Urine Protein Negative (NEGATIVE) Urine Glucose (UA) 500 H (NEGATIVE) Urine Ketones Trace H (NEGATIVE) Urine Occult Blood Trace-lysed H (NEGATIVE) Urine Nitrite Negative (NEGATIVE) Urine Bilirubin Negative (NEGATIVE) Urine Urobilinogen 0.2 (0.2-1.0) mg/dL Ur Leukocyte Esterase Negative (NEGATIVE) Urine RBC 5-10 H /HPF Urine WBC 0-5 (0-5/HPF) /HPF Ur Epithelial Cells Rare (NOT SEEN) /HPF Amorphous Sediment Rare (NOT SEEN) /HPF Urine Bacteria Rare (0-FEW/HPF) /HPF Urine Mucus Rare (NOT SEEN) /LPF Urine Opiates Screen Negative (NEGATIVE) Ur Oxycodone Screen Negative (NEGATIVE) Urine Methadone Screen Negative (NEGATIVE) Ur Barbiturates Screen Negative (NEGATIVE) U Tricyclic Antidepress Negative (NEGATIVE) Ur Phencyclidine Scrn Negative (NEGATIVE) Ur Amphetamine Screen Negative (NEGATIVE) U Methamphetamines Scrn Negative (NEGATIVE) Urine MDMA Screen Negative (NEGATIVE) U Benzodiazepines Scrn Negative (NEGATIVE) Urine Cocaine Screen Negative (NEGATIVE) U Marijuana (THC) Screen Negative (NEGATIVE) Ethyl Alcohol (0) mg/dL Ketones 02/16/20 02/16/20 02/16/20 Range/Units 16:18 17:05 18:04 WBC (5.0-10.0) 10^3/uL RBC (4.6-6.2) 10^6/uL Hgb (14.0-18.0) g/dL Hct (40.0-54.0) % MCV (80-100) fL MCH (27.0-34.0) pg MCHC (33.0-35.0) g/dL Plt Count (150-450) 10^3/uL Neut % (Auto) (42.2-75.2) % Lymph % (Auto) (20.5-50.1) % [place] % (Auto) (2-8) % Eos % (Auto) (1.0-3.0) % Baso % (Auto) (0.0-1.0) % ABG pH (7.35-7.45) ABG pCO2 (35-45) mmHg ABG pO2 (70-100) mmHg ABG HCO3 (22-26) mmol/L ABG O2 Saturation (95-100) % ABG Base Excess ((-2)-(+3)) mmol/L Jasiel Test O2 Delivery Device Sodium (136-145) mmol/L Potassium (3.5-5.1) mmol/L Chloride (98-107) mmol/L Carbon Dioxide (21-32) mmol/L Anion Gap (7-13) mEq/L BUN (7-18) mg/dL Creatinine (0.70-1.30) mg/dL Est Cr Clr Drug Dosing mL/min Estimated GFR (MDRD) BUN/Creatinine Ratio (No establ ref range) Glucose (74-99) mg/dL POC Glucose 255 H 181 H 267 H (70-105) mg/dl Lactic Acid (0.4-2.0) mmol/L Calcium (8.5-10.1) mg/dL Phosphorus (2.6-4.7) mg/dL Magnesium (1.8-2.4) mg/dL Total Bilirubin (0.2-1.0) mg/dL AST (15-37) U/L ALT (16-63) U/L Alkaline Phosphatase (46-116) U/L Troponin I (0.000-0.056) ng/mL Total Protein (6.4-8.2) g/dL Albumin (3.4-5.0) g/dL Globulin Albumin/Globulin Ratio Free T4 (0.76-1.46) ng/dL TSH, Ultra Sensitive (0.36-3.74) uIU/mL Urine Color (YELLOW) Urine Appearance (CLEAR) Urine pH (5.0-9.0) Ur Specific [place] (1.005-1.030) Urine Protein (NEGATIVE) Urine Glucose (UA) (NEGATIVE) Urine Ketones (NEGATIVE) Urine Occult Blood (NEGATIVE) Urine Nitrite (NEGATIVE) Urine Bilirubin (NEGATIVE) Urine Urobilinogen (0.2-1.0) mg/dL Ur Leukocyte Esterase (NEGATIVE) Urine RBC /HPF Urine WBC (0-5/HPF) /HPF Ur Epithelial Cells (NOT SEEN) /HPF Amorphous Sediment (NOT SEEN) /HPF Urine Bacteria (0-FEW/HPF) /HPF Urine Mucus (NOT SEEN) /LPF Urine Opiates Screen (NEGATIVE) Ur Oxycodone Screen (NEGATIVE) Urine Methadone Screen (NEGATIVE) Ur Barbiturates Screen (NEGATIVE) U Tricyclic Antidepress (NEGATIVE) Ur Phencyclidine Scrn (NEGATIVE) Ur Amphetamine Screen (NEGATIVE) U Methamphetamines Scrn (NEGATIVE) Urine MDMA Screen (NEGATIVE) U Benzodiazepines Scrn (NEGATIVE) Urine Cocaine Screen (NEGATIVE) U Marijuana (THC) Screen (NEGATIVE) Ethyl Alcohol (0) mg/dL Ketones 02/16/20 02/16/20 02/16/20 Range/Units 19:10 20:04 21:05 WBC (5.0-10.0) 10^3/uL RBC (4.6-6.2) 10^6/uL Hgb (14.0-18.0) g/dL Hct (40.0-54.0) % MCV (80-100) fL MCH (27.0-34.0) pg MCHC (33.0-35.0) g/dL Plt Count (150-450) 10^3/uL Neut % (Auto) (42.2-75.2) % Lymph % (Auto) (20.5-50.1) % [place] % (Auto) (2-8) % Eos % (Auto) (1.0-3.0) % Baso % (Auto) (0.0-1.0) % ABG pH (7.35-7.45) ABG pCO2 (35-45) mmHg ABG pO2 (70-100) mmHg ABG HCO3 (22-26) mmol/L ABG O2 Saturation (95-100) % ABG Base Excess ((-2)-(+3)) mmol/L Jasiel Test O2 Delivery Device Sodium (136-145) mmol/L Potassium (3.5-5.1) mmol/L Chloride (98-107) mmol/L Carbon Dioxide (21-32) mmol/L Anion Gap (7-13) mEq/L BUN (7-18) mg/dL Creatinine (0.70-1.30) mg/dL Est Cr Clr Drug Dosing mL/min Estimated GFR (MDRD) BUN/Creatinine Ratio (No establ ref range) Glucose (74-99) mg/dL POC Glucose 343 H 292 H 273 H (70-105) mg/dl Lactic Acid (0.4-2.0) mmol/L Calcium (8.5-10.1) mg/dL Phosphorus (2.6-4.7) mg/dL Magnesium (1.8-2.4) mg/dL Total Bilirubin (0.2-1.0) mg/dL AST (15-37) U/L ALT (16-63) U/L Alkaline Phosphatase (46-116) U/L Troponin I (0.000-0.056) ng/mL Total Protein (6.4-8.2) g/dL Albumin (3.4-5.0) g/dL Globulin Albumin/Globulin Ratio Free T4 (0.76-1.46) ng/dL TSH, Ultra Sensitive (0.36-3.74) uIU/mL Urine Color (YELLOW) Urine Appearance (CLEAR) Urine pH (5.0-9.0) Ur Specific [place] (1.005-1.030) Urine Protein (NEGATIVE) Urine Glucose (UA) (NEGATIVE) Urine Ketones (NEGATIVE) Urine Occult Blood (NEGATIVE) Urine Nitrite (NEGATIVE) Urine Bilirubin (NEGATIVE) Urine Urobilinogen (0.2-1.0) mg/dL Ur Leukocyte Esterase (NEGATIVE) Urine RBC /HPF Urine WBC (0-5/HPF) /HPF Ur Epithelial Cells (NOT SEEN) /HPF Amorphous Sediment (NOT SEEN) /HPF Urine Bacteria (0-FEW/HPF) /HPF Urine Mucus (NOT SEEN) /LPF Urine Opiates Screen (NEGATIVE) Ur Oxycodone Screen (NEGATIVE) Urine Methadone Screen (NEGATIVE) Ur Barbiturates Screen (NEGATIVE) U Tricyclic Antidepress (NEGATIVE) Ur Phencyclidine Scrn (NEGATIVE) Ur Amphetamine Screen (NEGATIVE) U Methamphetamines Scrn (NEGATIVE) Urine MDMA Screen (NEGATIVE) U Benzodiazepines Scrn (NEGATIVE) Urine Cocaine Screen (NEGATIVE) U Marijuana (THC) Screen (NEGATIVE) Ethyl Alcohol (0) mg/dL Ketones 02/17/20 02/17/20 02/17/20 Range/Units 04:13 06:00 06:00 WBC 7.8 (5.0-10.0) 10^3/uL RBC 4.22 L (4.6-6.2) 10^6/uL Hgb 13.0 L D (14.0-18.0) g/dL Hct 37.1 L (40.0-54.0) % MCV 87.9 (80-100) fL MCH 30.8 (27.0-34.0) pg MCHC 35.0 (33.0-35.0) g/dL Plt Count 282 (150-450) 10^3/uL Neut % (Auto) 61.9 (42.2-75.2) % Lymph % (Auto) 18.5 L (20.5-50.1) % [place] % (Auto) 10.5 H (2-8) % Eos % (Auto) 8.6 H (1.0-3.0) % Baso % (Auto) 0.5 (0.0-1.0) % ABG pH (7.35-7.45) ABG pCO2 (35-45) mmHg ABG pO2 (70-100) mmHg ABG HCO3 (22-26) mmol/L ABG O2 Saturation (95-100) % ABG Base Excess ((-2)-(+3)) mmol/L Jasiel Test O2 Delivery Device Sodium 133 L D (136-145) mmol/L Potassium 4.0 (3.5-5.1) mmol/L Chloride 98 D (98-107) mmol/L Carbon Dioxide 27 (21-32) mmol/L Anion Gap 12.0 (7-13) mEq/L BUN 29 H (7-18) mg/dL Creatinine 1.24 (0.70-1.30) mg/dL Est Cr Clr Drug Dosing 71.27 mL/min Estimated GFR (MDRD) > 60 BUN/Creatinine Ratio (No establ ref range) Glucose 219 H (74-99) mg/dL POC Glucose 257 H (70-105) mg/dl Lactic Acid (0.4-2.0) mmol/L Calcium 7.6 L (8.5-10.1) mg/dL Phosphorus 2.8 (2.6-4.7) mg/dL Magnesium 2.0 (1.8-2.4) mg/dL Total Bilirubin (0.2-1.0) mg/dL AST (15-37) U/L ALT (16-63) U/L Alkaline Phosphatase (46-116) U/L Troponin I (0.000-0.056) ng/mL Total Protein (6.4-8.2) g/dL Albumin (3.4-5.0) g/dL Globulin Albumin/Globulin Ratio Free T4 (0.76-1.46) ng/dL TSH, Ultra Sensitive (0.36-3.74) uIU/mL Urine Color (YELLOW) Urine Appearance (CLEAR) Urine pH (5.0-9.0) Ur Specific [place] (1.005-1.030) Urine Protein (NEGATIVE) Urine Glucose (UA) (NEGATIVE) Urine Ketones (NEGATIVE) Urine Occult Blood (NEGATIVE) Urine Nitrite (NEGATIVE) Urine Bilirubin (NEGATIVE) Urine Urobilinogen (0.2-1.0) mg/dL Ur Leukocyte Esterase (NEGATIVE) Urine RBC /HPF Urine WBC (0-5/HPF) /HPF Ur Epithelial Cells (NOT SEEN) /HPF Amorphous Sediment (NOT SEEN) /HPF Urine Bacteria (0-FEW/HPF) /HPF Urine Mucus (NOT SEEN) /LPF Urine Opiates Screen (NEGATIVE) Ur Oxycodone Screen (NEGATIVE) Urine Methadone Screen (NEGATIVE) Ur Barbiturates Screen (NEGATIVE) U Tricyclic Antidepress (NEGATIVE) Ur Phencyclidine Scrn (NEGATIVE) Ur Amphetamine Screen (NEGATIVE) U Methamphetamines Scrn (NEGATIVE) Urine MDMA Screen (NEGATIVE) U Benzodiazepines Scrn (NEGATIVE) Urine Cocaine Screen (NEGATIVE) U Marijuana (THC) Screen (NEGATIVE) Ethyl Alcohol (0) mg/dL Ketones 02/17/20 Range/Units 08:04 WBC (5.0-10.0) 10^3/uL RBC (4.6-6.2) 10^6/uL Hgb (14.0-18.0) g/dL Hct (40.0-54.0) % MCV (80-100) fL MCH (27.0-34.0) pg MCHC (33.0-35.0) g/dL Plt Count (150-450) 10^3/uL Neut % (Auto) (42.2-75.2) % Lymph % (Auto) (20.5-50.1) % [place] % (Auto) (2-8) % Eos % (Auto) (1.0-3.0) % Baso % (Auto) (0.0-1.0) % ABG pH (7.35-7.45) ABG pCO2 (35-45) mmHg ABG pO2 (70-100) mmHg ABG HCO3 (22-26) mmol/L ABG O2 Saturation (95-100) % ABG Base Excess ((-2)-(+3)) mmol/L Jasiel Test O2 Delivery Device Sodium (136-145) mmol/L Potassium (3.5-5.1) mmol/L Chloride (98-107) mmol/L Carbon Dioxide (21-32) mmol/L Anion Gap (7-13) mEq/L BUN (7-18) mg/dL Creatinine (0.70-1.30) mg/dL Est Cr Clr Drug Dosing mL/min Estimated GFR (MDRD) BUN/Creatinine Ratio (No establ ref range) Glucose (74-99) mg/dL POC Glucose 230 H (70-105) mg/dl Lactic Acid (0.4-2.0) mmol/L Calcium (8.5-10.1) mg/dL Phosphorus (2.6-4.7) mg/dL Magnesium (1.8-2.4) mg/dL Total Bilirubin (0.2-1.0) mg/dL AST (15-37) U/L ALT (16-63) U/L Alkaline Phosphatase (46-116) U/L Troponin I (0.000-0.056) ng/mL Total Protein (6.4-8.2) g/dL Albumin (3.4-5.0) g/dL Globulin Albumin/Globulin Ratio Free T4 (0.76-1.46) ng/dL TSH, Ultra Sensitive (0.36-3.74) uIU/mL Urine Color (YELLOW) Urine Appearance (CLEAR) Urine pH (5.0-9.0) Ur Specific [place] (1.005-1.030) Urine Protein (NEGATIVE) Urine Glucose (UA) (NEGATIVE) Urine Ketones (NEGATIVE) Urine Occult Blood (NEGATIVE) Urine Nitrite (NEGATIVE) Urine Bilirubin (NEGATIVE) Urine Urobilinogen (0.2-1.0) mg/dL Ur Leukocyte Esterase (NEGATIVE) Urine RBC /HPF Urine WBC (0-5/HPF) /HPF Ur Epithelial Cells (NOT SEEN) /HPF Amorphous Sediment (NOT SEEN) /HPF Urine Bacteria (0-FEW/HPF) /HPF Urine Mucus (NOT SEEN) /LPF Urine Opiates Screen (NEGATIVE) Ur Oxycodone Screen (NEGATIVE) Urine Methadone Screen (NEGATIVE) Ur Barbiturates Screen (NEGATIVE) U Tricyclic Antidepress (NEGATIVE) Ur Phencyclidine Scrn (NEGATIVE) Ur Amphetamine Screen (NEGATIVE) U Methamphetamines Scrn (NEGATIVE) Urine MDMA Screen (NEGATIVE) U Benzodiazepines Scrn (NEGATIVE) Urine Cocaine Screen (NEGATIVE) U Marijuana (THC) Screen (NEGATIVE) Ethyl Alcohol (0) mg/dL Ketones Med Orders - Current: Current Medications Acetaminophen (Tylenol) 650 mg PO Q4H PRN PRN Reason: Pain (Mild 1-3)/fever Benzocaine/Menthol (Cepacol Sore Throat) 1 lozenge MUCMEM Q4HR PRN PRN Reason: Cough Last Admin: 02/17/20 08:47 Dose: 1 lozenge Heparin Sodium (Porcine) (Heparin Sodium) 5,000 units SUBCUT Q8HR [facility] Last Admin: 02/17/20 06:43 Dose: 5,000 units Sodium Chloride (Normal Saline) 1,000 mls @ 200 mls/hr IV ASDIRECTED [facility] Last Admin: 02/17/20 08:21 Dose: 200 mls/hr Insulin Glargine (Lantus) 35 unit SUBCUT DAILY [facility] Last Admin: 02/17/20 08:21 Dose: 35 units Insulin Human Lispro (Humalog) 0 unit SUBCUT WITHMEALSANDBED [facility]; Protocol Last Admin: 02/17/20 08:23 Dose: 4 units Insulin Human Lispro (Humalog) 10 unit SUBCUT TIDMEALS [facility] Last Admin: 02/17/20 08:22 Dose: 10 units Ondansetron HCl (Zofran) 4 mg IVPUSH Q6H PRN PRN Reason: Nausea/Vomiting Sodium Chloride (Saline Flush) 10 ml FLUSH ASDIRECTED PRN PRN Reason: Keep Vein Open Last Admin: 02/16/20 13:23 Dose: 10 ml Discontinued Medications Sodium Chloride (Normal Saline) 1,000 mls @ 999 mls/hr IV .BOLUS ONE Stop: 02/16/20 13:44 Last Admin: 02/16/20 14:07 Dose: 999 mls/hr Insulin Human Regular 100 unit (/ Sodium Chloride) 100 mls @ 20.26 mls/hr IV TITRATE JENNIFER; Protocol Last Titration: 02/16/20 20:11 Dose: 0 units/kg/hr, 0.8 mls/hr Sodium Chloride (Normal Saline) 1,000 mls @ 999 mls/hr IV .BOLUS ONE Stop: 02/16/20 15:23 Last Infusion: 02/16/20 16:55 Dose: Infused Insulin Glargine (Lantus) 10 unit SUBCUT ONETIME ONE Stop: 02/16/20 21:12 Last Admin: 02/16/20 21:39 Dose: 10 units Insulin Human Lispro (Humalog) 12 unit SUBCUT ONETIME ONE Stop: 02/16/20 21:13 Last Admin: 02/16/20 21:38 Dose: 12 units Insulin Human Regular (Humulin R) 10 unit IV ONETIME ONE Stop: 02/16/20 12:45 Last Admin: 02/16/20 14:06 Dose: 10.1 units Ondansetron HCl (Zofran) 4 mg IV ONETIME ONE Stop: 02/16/20 13:43 Last Admin: 02/16/20 14:08 Dose: 4 mg - Exam General: Reports: Alert, Oriented, Cooperative Neck: Reports: Supple Lungs: Reports: Clear to Auscultation, Normal Respiratory Effort Cardiovascular: Reports: Regular Rate, Regular Rhythm GI/Abdominal Exam: Normal Bowel Sounds, Soft, Non-Tender, No Organomegaly, No Distention, No Abnormal Bruit, No Mass, Pelvis Stable Back Exam: Reports: Normal Inspection, Full Range of Motion
[2020-02-17 12:12] VITALS: BP 118/59; PULSE 80
[2020-02-17 14:42] LABS: ANION GAP 9.9 mEq/L (7-13)
== END 2020-02-17 15:00 | disposition home or self-care (01) | DRG 638 ==
LOC: DL.ED 12:39 → DL.MS 14:48
PROVIDERS: ADMIT Hospitalist; ATTEND Hospitalist
DX: E11.65 Type 2 diabetes mellitus with hyperglycemia (principal); N17.9 Acute kidney failure, unspecified; E87.1 Hypo-osmolality and hyponatremia; E05.90 Thyrotoxicosis, unspecified without thyrotoxic crisis or storm; I10 Essential (primary) hypertension; E66.9 Obesity, unspecified; Z90.49 Acquired absence of other specified parts of digestive tract; Z79.82 Long term (current) use of aspirin; Z79.4 Long term (current) use of insulin; Z79.899 Other long term (current) drug therapy; Z68.33 Body mass index [BMI] 33.0-33.9, adult
CPT/HCPCS: 36415; 36600; 80048; 80053; 80305-QW; 80307; 81001; 82009; 82803; 82962; 83605; 83735; 84100; 84439; 84443; 84481; 84484; 85025; 93005; 96361; 96374; 99285-25; A9270-GY; J1644; J1815-GY; J2405; J7030

== ENCOUNTER 2020-11-26 10:31 | Emergency (ER) | payer OTHER ==
[2020-11-26 11:01] VITALS: BP 99/55; PULSE 83
[2020-11-26] MEDS ORDERED: Sodium Chloride 0.9% 10 ML Syringe FLUSH PRN (11:08)
[2020-11-26] MEDS ORDERED: Glucagon,Human Recombinant 1 MG Vial IM PRN ×2 (11:10→12:31)
[2020-11-26] MEDS ORDERED: Insulin Regular, Human 100 Units/ML 3 ML Vial IV ONE ×2 (11:10→12:31)
[2020-11-26] MEDS ORDERED: Sodium Chloride 0.9% 1,000 ML IV ONE (11:10)
[2020-11-26] MEDS ORDERED: 50% Dextrose in Water 50 ML Syringe IV PRN ×2 (11:10→12:31)
--- NOTE | 2020-11-26 11:22 | EDM.PDOC ---
ED HPI GENERAL MEDICAL PROBLEM - General Chief Complaint: Diabetic Complaint Stated Complaint: CLINIC REFERRAL Time Seen by Provider: 11/26/20 11:00 Source of Information: Reports: Patient, Old Records, RN, RN Notes Reviewed History Limitations: Reports: No Limitations - History of Present Illness INITIAL COMMENTS - FREE TEXT/NARRATIVE: 50 y.o M presents with verbalizing that he was told to come to the ED for "low labs". Pt states he had a lab draw at [facility] clinic this AM at 0900. Pt unsure of what was actually low. Fax received at 1053 showing elevated glucose of 519, NA 129 and note stating they told pt to go to ED for further care. Pt reports HX of DM, HTN. Denies any complaints or concerns at this time, appears in no apparent distress. No call received from [facility] nurse or provider. Onset: Unknown/Unsure Duration: Chronic Quality: Reports: Other (Denies pain) Severity: Severe Improves with: Reports: None Worsens with: Reports: None Associated Symptoms: Reports: No Other Symptoms - Related Data Allergies Allergy/AdvReac Type Severity Reaction Status Date / Time No Known Allergies Allergy Verified 11/26/20 11:02 Home Meds: Home Meds Aspirin [Ecotrin EC] 81 mg PO DAILY 10/07/14 [History] Cholecalciferol (Vitamin D3) [Vitamin D3] 1,000 unit PO DAILY 02/16/20 [History] Metoprolol Succinate 100 mg PO DAILY 02/16/20 [History] hydroCHLOROthiazide [Hydrochlorothiazide] 50 mg PO DAILY 02/16/20 [History] lisinopriL [Zestril] 40 mg PO DAILY 02/16/20 [History] Insulin Detemir [Levemir] 40 unit SQ BEDTIME #1 pen 02/17/20 [Rx] Insulin Lispro [HumaLOG] 15 unit SUBCUT TIDMEALS #1 pen 02/17/20 [Rx] metFORMIN [Glucophage] 500 mg PO BIDMEALS #90 tablet 02/17/20 [Rx] Past Medical History HEENT History: Reports: None Cardiovascular History: Reports: Hypertension Respiratory History: Reports: None Gastrointestinal History: Reports: None Genitourinary History: Reports: None Musculoskeletal History: Reports: None Neurological History: Reports: None Psychiatric History: Reports: None Endocrine/Metabolic History: Reports: Diabetes, Type II, Obesity/BMI 30+ Hematologic History: Reports: None Immunologic History: Reports: None Oncologic (Cancer) History: Reports: None Dermatologic History: Reports: None - Infectious Disease History Infectious Disease History: Reports: None - Past Surgical History Other HEENT Surgeries/Procedures: ear surgery GI Surgical History: Reports: Appendectomy, Cholecystectomy Social & Family History - Family History Family Medical History: No Pertinent Family History Cardiac: Reports: Angina, CAD, Heart Failure, Hypertension, [place] Respiratory: Reports: Asthma, COPD GI: Reports: Cirrhosis : Reports: Diabetic Nephropathy, Dialysis, Renal Disease/Insufficiency Musculoskeletal: Reports: Arthritis Neurological: Reports: CVA Psychiatric: Reports: Anxiety, Depression Endocrine/Metabolic: Reports: Diabetes, type II, Obesity/MBI 30+ - Caffeine Use Caffeine Use: Reports: Coffee - Living Situation & Occupation Living situation: Reports: Single, with Family ED ROS GENERAL - Review of Systems Review Of Systems: Comprehensive ROS is negative, except as noted in HPI. ED EXAM, GENERAL - Physical Exam Exam: See Below Exam Limited By: No Limitations General Appearance: Alert, WD/WN, No Apparent Distress Throat/Mouth: Normal Inspection, Normal Teeth, Normal Voice Head: Atraumatic, Normocephalic Neck: Normal Inspection Respiratory/Chest: No Respiratory Distress, Lungs Clear, Normal Breath Sounds, No Accessory Muscle Use, Chest Non-Tender Cardiovascular: Normal Peripheral Pulses, Regular Rate, Rhythm, No Edema, No Gallop, No JVD, No Murmur, No Rub GI/Abdominal: Normal Bowel Sounds, Soft, Non-Tender, No Organomegaly, No Distention, No Abnormal Bruit, No Mass Back Exam: Normal Inspection Extremities: Normal Inspection, Normal Range of Motion, Non-Tender, Normal Capillary Refill, No Pedal Edema Neurological: Alert, Oriented, CN II-XII Intact, Normal Cognition, Normal Gait, No Motor/Sensory Deficits Psychiatric: Normal Affect, Normal Mood Skin Exam: Warm, Dry, Intact, Normal Color, No Rash Course - Vital Signs Last Recorded V/S: Last Vital Signs Temp 97.9 F 11/26/20 10:52 Pulse 83 11/26/20 10:52 Resp 18 11/26/20 10:52 BP 99/55 L 11/26/20 10:52 Pulse Ox 100 11/26/20 10:52 - Orders/Labs/Meds Orders: Active Orders 24 hr Category Date Time Status Blood Glucose Check, Bedside [RC] ONETIME Care 11/26/20 11:06 Active Blood Glucose Check, Bedside [RC] ONETIME Care 11/26/20 11:12 Active Blood Glucose Check, Bedside [] ONETIME Care 11/26/20 12:31 Active Peripheral IV Care [] . DIRECTED Care 11/26/20 11:08 Active Dextrose 50% in Water Med 11/26/20 11:10 Active 50 ml IV ASDIRECTED PRN Dextrose 50% in Water Med 11/26/20 12:31 Active 50 ml IV ASDIRECTED PRN Glucagon,Human Recombinant [GlucaGen] Med 11/26/20 11:10 Active 1 mg IM ASDIRECTED PRN Glucagon,Human Recombinant [GlucaGen] Med 11/26/20 12:31 Active 1 mg IM ASDIRECTED PRN Sodium Chloride 0.9% [Saline Flush] Med 11/26/20 11:08 Active 10 ml FLUSH ASDIRECTED PRN Peripheral IV Insertion Adult [OM.PC] Stat Oth 11/26/20 11:08 Ordered Medication Orders Dextrose/Water (Dextrose 50% In Water) 50 ml IV ASDIRECTED PRN PRN Reason: Hypoglycemia Dextrose/Water (Dextrose 50% In Water) 50 ml IV ASDIRECTED PRN PRN Reason: Hypoglycemia Glucagon (Glucagen) 1 mg IM ASDIRECTED PRN PRN Reason: Hypoglycemia Glucagon (Glucagen) 1 mg IM ASDIRECTED PRN PRN Reason: Hypoglycemia Sodium Chloride (Saline Flush) 10 ml FLUSH ASDIRECTED PRN PRN Reason: Keep Vein Open Labs: Laboratory Tests 11/26/20 11/26/20 11/26/20 Range/Units 10:55 11:10 11:10 WBC 6.8 (5.0-10.0) 10^3/uL RBC 5.18 (4.6-6.2) 10^6/uL Hgb 16.0 D (14.0-18.0) g/dL Hct 45.8 (40.0-54.0) % MCV 88.4 (80-100) fL MCH 30.9 (27.0-34.0) pg MCHC 34.9 (33.0-35.0) g/dL Plt Count 319 (150-450) 10^3/uL Neut % (Auto) 59.0 (42.2-75.2) % Lymph % (Auto) 23.2 (20.5-50.1) % [place] % (Auto) 12.9 H (2-8) % Eos % (Auto) 4.3 H (1.0-3.0) % Baso % (Auto) 0.6 (0.0-1.0) % Sodium 129 L (136-145) mmol/L Potassium 4.7 (3.5-5.1) mmol/L Chloride 91 L (98-107) mmol/L Carbon Dioxide 28 (21-32) mmol/L Anion Gap 14.7 H (7-13) mEq/L BUN 33 H (7-18) mg/dL Creatinine 1.29 (0.70-1.30) mg/dL Est Cr Clr Drug Dosing 67.75 mL/min Estimated GFR (MDRD) 59 BUN/Creatinine Ratio 25.6 (No establ ref range) Glucose 563 H* (74-99) mg/dL POC Glucose > 500 H* (70-105) mg/dl Calcium 9.1 (8.5-10.1) mg/dL Magnesium 2.5 H (1.8-2.4) mg/dL Total Bilirubin 0.9 (0.2-1.0) mg/dL AST 8 L (15-37) U/L ALT 27 (16-63) U/L Alkaline Phosphatase 153 H (46-116) U/L Total Protein 8.2 (6.4-8.2) g/dL Albumin 4.0 (3.4-5.0) g/dL Globulin 4.2 Albumin/Globulin Ratio 1.0 Urine Color (YELLOW) Urine Appearance (CLEAR) Urine pH (5.0-9.0) Ur Specific [place] (1.005-1.030) Urine Protein (NEGATIVE) Urine Glucose (UA) (NEGATIVE) Urine Ketones (NEGATIVE) Urine Occult Blood (NEGATIVE) Urine Nitrite (NEGATIVE) Urine Bilirubin (NEGATIVE) Urine Urobilinogen (0.2-1.0) mg/dL Ur Leukocyte Esterase (NEGATIVE) Ketones 11/26/20 11/26/20 11/26/20 Range/Units 11:10 11:12 11:46 WBC (5.0-10.0) 10^3/uL RBC (4.6-6.2) 10^6/uL Hgb (14.0-18.0) g/dL Hct (40.0-54.0) % MCV (80-100) fL MCH (27.0-34.0) pg MCHC (33.0-35.0) g/dL Plt Count (150-450) 10^3/uL Neut % (Auto) (42.2-75.2) % Lymph % (Auto) (20.5-50.1) % [place] % (Auto) (2-8) % Eos % (Auto) (1.0-3.0) % Baso % (Auto) (0.0-1.0) % Sodium (136-145) mmol/L Potassium (3.5-5.1) mmol/L Chloride (98-107) mmol/L Carbon Dioxide (21-32) mmol/L Anion Gap (7-13) mEq/L BUN (7-18) mg/dL Creatinine (0.70-1.30) mg/dL Est Cr Clr Drug Dosing mL/min Estimated GFR (MDRD) BUN/Creatinine Ratio (No establ ref range) Glucose (74-99) mg/dL POC Glucose 457 H* (70-105) mg/dl Calcium (8.5-10.1) mg/dL Magnesium (1.8-2.4) mg/dL Total Bilirubin (0.2-1.0) mg/dL AST (15-37) U/L ALT (16-63) U/L Alkaline Phosphatase (46-116) U/L Total Protein (6.4-8.2) g/dL Albumin (3.4-5.0) g/dL Globulin Albumin/Globulin Ratio Urine Color Yellow (YELLOW) Urine Appearance Clear (CLEAR) Urine pH 5.5 (5.0-9.0) Ur Specific [place] 1.010 (1.005-1.030) Urine Protein Negative (NEGATIVE) Urine Glucose (UA) 500 H (NEGATIVE) Urine Ketones Negative (NEGATIVE) Urine Occult Blood Negative (NEGATIVE) Urine Nitrite Negative (NEGATIVE) Urine Bilirubin Negative (NEGATIVE) Urine Urobilinogen 0.2 (0.2-1.0) mg/dL Ur Leukocyte Esterase Negative (NEGATIVE) Ketones Negative Meds: Medications Generic Name Dose Route Start Last Admin Trade Name Freq PRN Reason Stop Dose Admin Dextrose/Water 50 ml 11/26/20 11:10 Dextrose 50% In Water IV ASDIRECTED PRN Hypoglycemia Dextrose/Water 50 ml 11/26/20 12:31 Dextrose 50% In Water IV ASDIRECTED PRN Hypoglycemia Glucagon 1 mg 11/26/20 11:10 Glucagen IM ASDIRECTED PRN Hypoglycemia Glucagon 1 mg 11/26/20 12:31 Glucagen IM ASDIRECTED PRN Hypoglycemia Sodium Chloride 10 ml 11/26/20 11:08 Saline Flush FLUSH ASDIRECTED PRN Keep Vein Open Discontinued Medications Generic Name Dose Route Start Last Admin Trade Name Sara PRN Reason Stop Dose Admin Sodium Chloride 1,000 mls @ 999 mls/hr 11/26/20 11:10 11/26/20 12:32 Normal Saline IV 11/26/20 12:10 Infused .BOLUS ONE Infusion Insulin Human Regular 10 unit 11/26/20 11:10 11/26/20 11:23 Humulin R IV 11/26/20 11:11 10 units ONETIME ONE Administration Insulin Human Regular 10 unit 11/26/20 12:31 11/26/20 12:38 Humulin R IV 11/26/20 12:32 10 units ONETIME ONE Administration Departure - Departure Time of Disposition: 13:13 Disposition: Home, Self-Care 01 Condition: Good Clinical Impression: Hyperglycemia due to type 2 diabetes mellitus Qualifiers: Diabetes mellitus correction insulin use: with ocean transportation intermediary use Qualified Code(s): E11.65 - Type 2 diabetes mellitus with hyperglycemia; Z79.4 - shelter (current) use of insulin - Discharge Information *PRESCRIPTION DRUG MONITORING PROGRAM REVIEWED*: Not Applicable *COPY OF PRESCRIPTION DRUG MONITORING REPORT IN PATIENT RENATA: Not Applicable Instructions: Hyperglycemia, [id number], Type 2 Diabetes Mellitus, Self Care, Adult, [id number] Forms: ED Department Discharge Additional Instructions: Monitor your blood sugar closely for the next 3 days. Drink plenty of water. Avoid sweets, sugar, and carbohydrate foods such as bread, flour, pasta, rice, potato, and corn. Follow up in clinic in 1 to 2 days for recheck. Sepsis Event Note (ED) - Evaluation Sepsis Screening Result: No Definite Risk - Focused Exam Vital Signs: Vital Signs Temp Pulse Resp BP Pulse Ox 11/26/20 10:52 97.9 F 83 18 99/55 L 100 - My Orders Last 24 Hours: My Active Orders 11/26/20 11:06 Blood Glucose Check, Bedside [RC] ONETIME 11/26/20 11:08 Peripheral IV Care [RC] . DIRECTED Sodium Chloride 0.9% [Saline Flush] 10 ml FLUSH ASDIRECTED PRN Peripheral IV Insertion Adult [OM.PC] Stat 11/26/20 11:10 Dextrose 50% in Water 50 ml IV ASDIRECTED PRN Glucagon,Human Recombinant [GlucaGen] 1 mg IM ASDIRECTED PRN 11/26/20 11:12 Blood Glucose Check, Bedside [RC] ONETIME 11/26/20 12:31 Blood Glucose Check, Bedside [RC] ONETIME Dextrose 50% in Water 50 ml IV ASDIRECTED PRN Glucagon,Human Recombinant [GlucaGen] 1 mg IM ASDIRECTED PRN - Assessment/Plan Last 24 Hours: My Active Orders 11/26/20 11:06 Blood Glucose Check, Bedside [RC] ONETIME 11/26/20 11:08 Peripheral IV Care [RC] . DIRECTED Sodium Chloride 0.9% [Saline Flush] 10 ml FLUSH ASDIRECTED PRN Peripheral IV Insertion Adult [OM.PC] Stat 11/26/20 11:10 Dextrose 50% in Water 50 ml IV ASDIRECTED PRN Glucagon,Human Recombinant [GlucaGen] 1 mg IM ASDIRECTED PRN 11/26/20 11:12 Blood Glucose Check, Bedside [RC] ONETIME 11/26/20 12:31 Blood Glucose Check, Bedside [RC] ONETIME Dextrose 50% in Water 50 ml IV ASDIRECTED PRN Glucagon,Human Recombinant [GlucaGen] 1 mg IM ASDIRECTED PRN
[2020-11-26 11:38] LABS: ANION GAP 14.7 mEq/L (7-13)
== END 2020-11-26 13:39 | disposition home or self-care (01) ==
LOC: DL.ED 10:31
DX: E11.65 Type 2 diabetes mellitus with hyperglycemia (principal); E66.9 Obesity, unspecified; Z68.30 Body mass index [BMI] 30.0-30.9, adult; Z79.82 Long term (current) use of aspirin; Z79.4 Long term (current) use of insulin; Z79.899 Other long term (current) drug therapy
CPT/HCPCS: 36415; 80053; 81003; 82009; 82962; 83735; 85025; 99283; 99284; J1815; J7030